=== PATIENT | male | born 1990 | race Caucasian/White ===

== ENCOUNTER 2016-08-24 10:36 | Observation (INO) | payer OTHER ==
--- NOTE | 2016-08-24 10:44 | EDPHY ---
H & P Time Seen by Provider: 08/24/16 10:41 HPI/ROS: CHIEF COMPLAINT: Left ankle deformity HISTORY OF PRESENT ILLNESS: The patient is brought into the ED by paramedics is limited trauma activation. The patient had isolated injury and deformity to his left ankle after a fall while climbing/hiking. The patient apparently struck a tree ultimately landed on his left ankle. He did not strike his head or lose consciousness. In the ED, the patient has no complaints of headache, neck pain, chest pain, back pain, abdominal pain, numbness, weakness or additional complaints aside from moderate to severe pain in his left ankle. REVIEW OF SYSTEMS: A comprehensive 10 point review of systems is otherwise negative aside from elements mentioned in the history of present illness. Source: Patient Exam Limitations: No limitations - Medical/Surgical History PMH: Past medical history: Noncontributory - Family History Significant Family History: No pertinent family hx - Social History Smoking Status: Never smoked - Physical Exam Exam: General Appearance: Alert, mild discomfort secondary to pain Head: Atraumatic Eyes: Pupils equal, round, reactive ENT, Mouth: No hemotympanum, no oral trauma Neck: Nontender, trachea midline Respiratory: No chest wall tender, subcutaneous air, lungs clear bilaterally Cardiovascular: Regular rate and rhythm Abdomen: Abdomen is soft and nontender, pelvis stable Skin: Multiple superficial abrasions Back: No midline T/L/S pain Extremities: Obvious ankle dislocation noted in the left ankle, slightly diminished posterior tibial pulse noted on exam Neurological: GCS 15, 5/5 strength all 4 extremities, sensation intact to light touch throughout the right and left lower extremities Constitutional: Initial Vital Signs Temperature (C) 36.6 C 08/24/16 10:40 Heart Rate 94 08/24/16 10:40 Respiratory Rate 10 L 08/24/16 10:40 Blood Pressure 138/70 H 08/24/16 10:40 O2 Sat (%) 96 08/24/16 10:40 O2 Delivery Mode Room Air Allergies/Adverse Reactions: No Known Allergies Allergy (Unverified 08/24/16 11:20) Home Medications: Medication Instructions Recorded NK [No Known Home Meds] 08/24/16 Medical Decision Making - Diagnostics Imaging Results: Imaging Impressions Ankle X-Ray 08/24/16 10:41 Impression: Bimalleolar fracture with mild widening of the ankle mortise medially suggesting disruption. Ankle X-Ray 08/24/16 11:14 Impression: Improved alignment following reduction of displaced medial and lateral malleolar fractures. Procedures: Procedure: Dislocation reduction. Indication: Dislocation of left bimalleolar ankle fracture dislocation The left ankle dislocation was reduced in the usual fashion without complications. The patient received IV fentanyl and Dilaudid prior to reduction. Post reduction the patient's neurovascular exam is normal. Post reduction x-ray demonstrates reduction of the joint to the anatomic position. The procedure was performed by myself. ED Course/Re-evaluation: The patient had an IV established. The patient received IV fentanyl prior to arrival by paramedics. He presents to the ED with an obvious ankle dislocation. The patient received an additional IV dose of Dilaudid. I reduced his ankle without difficulty. Post reduction x-ray demonstrates alignment of the complicated bimalleolar fracture. Consultation was made with Dr. Colin Diamond from Orthopedic surgery who evaluated the patient in the emergency department at 11:45 a.m. The patient will be admitted to the hospital for repair of his bimalleolar fracture. Dr. Antonio Florence from trauma surgery will admit the patient to the hospital secondary to his limited trauma activation status. Differential Diagnosis: Differential diagnosis considered includes open ankle fracture dislocation, closed ankle fracture dislocation, neurovascular injury, compartment syndrome - Data Points Medications Given: Discontinued Medications Hydromorphone HCl (Dilaudid) 1 mg IVP EDNOW ONE Stop: 08/24/16 10:54 Last Admin: 08/24/16 11:21 Dose: 1 mg Ondansetron HCl (Zofran) 4 mg IVP EDNOW ONE Stop: 08/24/16 10:55 Last Admin: 08/24/16 11:21 Dose: 4 mg Tetracaine/Epinephrine/Lidocaine (Let Gel Topical) 1 ea TP EDNOW ONE Stop: 08/24/16 11:39 Last Admin: 08/24/16 11:38 Dose: 1 ea Departure - Departure Disposition: [facility] Inpatient Acute Clinical Impression: Multiple abrasions Bimalleolar ankle fracture Qualifiers: Encounter type: initial encounter Fracture type: closed Laterality: left Qualified Code(s): S82.842A - Displaced bimalleolar fracture of left lower leg, initial encounter for closed fracture Condition: Good Referrals: Patient,NotPresent [Unknown] - As per Instructions
[2016-08-24] MEDS ORDERED: LET GEL TOPICAL 1 EA SYR TP ONE ×2 (10:45→11:38)
[2016-08-24] MEDS ORDERED: HYDROmorphONE/DILAUDID 1 MG/ML SYR ONE (10:47)
[2016-08-24] MEDS ORDERED: ONDANSETRON 4 MG/2 ML VIAL ONE ×2 (10:48→12:18)
[2016-08-24] MEDS ORDERED: HYDROmorphONE/DILAUDID 1 MG/ML SYR IVP ONE (10:53)
[2016-08-24] MEDS ORDERED: ONDANSETRON 4 MG/2 ML VIAL IVP ONE (10:54)
[2016-08-24] MEDS ORDERED: POLYMYXIN B SULFATE 500,000 UNIT/10 ML SYR IRR ONE (12:14)
[2016-08-24] MEDS ORDERED: BACITRACIN 50,000 UNITS/10 ML SYR IRR ONE (12:14)
[2016-08-24] MEDS ORDERED: BUPIVACAINE 0.25% 30 ML SDV ONE (12:14)
[2016-08-24] MEDS ORDERED: PROPOFOL 200 MG/20 ML VIAL ONE (12:18)
[2016-08-24] MEDS ORDERED: DEXAMETHASONE 4 MG/ML VIAL ONE (12:18)
[2016-08-24] MEDS ORDERED: HYDROmorphONE/DILAUDID 2 MG/ML INJ ONE ×2 (12:18→14:45)
[2016-08-24] MEDS ORDERED: LIDOCAINE 2% 100 MG/5 ML SYR ONE (12:18)
[2016-08-24] MEDS ORDERED: MIDAZOLAM 2 MG/2 ML VIAL ONE (12:33)
[2016-08-24] MEDS ORDERED: CEFAZOLIN 2 GM/DEXTROSE/100 ML BAG IV ONE (12:38)
[2016-08-24] MEDS ORDERED: BUPIVACAINE/EPI 0.25% 30 ML SDV ONE (13:11)
--- NOTE | 2016-08-24 13:16 | GHP ---
[f rep st] HISTORY AND PHYSICAL DATE OF ADMISSION: 08/24/2016 CHIEF COMPLAINT: Fall from a climbing. PRESENT ILLNESS: A 26-year-old male fell approximately 25 feet while rock climbing, landing on the left ankle. Brought to the hospital. The patient is alert and oriented, complaining only of left a nkle pain. He has a splint in place. ALLERGIES: None. CURRENT MEDICATIONS: None. PREVIOUS SURGERY: Inguinal hernia as a child. SOCIAL HISTORY: Works for [employer]. Smokes occasional vape; no tobacco. Ethanol use: Occasiona lly. REVIEW OF SYSTEMS: Denies asthma, heart trouble, diabetes, epilepsy, rheumatic fever. PHYSICAL EXAM: HEENT: PERRLA, EOMI. Sclerae are nonicteric. Pharynx is clear. NECK: Supple wit hout adenopathy. LUNGS: Clear. No supraclavicular nor axillary crepitus. NECK: Clavicles intact . UPPER EXTREMITIES: Atraumatic. LUNGS: Clear. HEART: Normal S1, S2 without murmurs. CHEST: Sternum is stable. Chest wall stable to compression. ABDOMEN: Soft, benign. PELVIS: Stable to c ompression. BACK: Nontender. LOWER EXTREMITIES: Thighs unremarkable. Right lower extremity unrem arkable. Left has a posterior splint in place. Toes are pink and with full motion. IMAGING: X-rays were reviewed showing a bimalleolar fracture with comminution. PLAN: The patient is being attended to by Dr. Declan Diamond from Orthopedics who plans on ORIF left ankl e in the next hour. Otherwise, the patient seems to have a single-system, isolated ankle fracture. /[id number]/MODL
[2016-08-24] MEDS ORDERED: KETOROLAC 30 MG/1 ML SDV ONE (14:27)
[2016-08-24] MEDS ORDERED: fentaNYL 100 MCG/2 ML INJ ONE (14:45)
[2016-08-24] MEDS ORDERED: ONDANSETRON DISINTEGRATING 4 MG TAB PO PRN (14:48)
[2016-08-24] MEDS ORDERED: ONDANSETRON 4 MG/2 ML VIAL IVP PRN (14:48)
[2016-08-24] MEDS ORDERED: oxyCODONE IR 5 MG TAB PO PRN (14:50)
[2016-08-24] MEDS ORDERED: HYDROmorphONE/DILAUDID 1 MG/ML SYR IVP PRN (14:52)
[2016-08-24] MEDS ORDERED: HYDROmorphONE/DILAUDID 2 MG TAB PO PRN (14:52)
[2016-08-24] MEDS ORDERED: PROMETHAZINE HCL 25 MG/ML INJ IVP PRN (14:55)
[2016-08-24] MEDS ORDERED: TEMAZEPAM 15 MG CAP PO PRN (14:55)
[2016-08-24] MEDS ORDERED: METOCLOPRAMIDE 10 MG/2 ML VIAL IVP PRN (14:55)
[2016-08-24] MEDS ORDERED: diphenhydrAMINE 25 MG CAP PO PRN (14:55)
[2016-08-24] MEDS ORDERED: DIPHENOXYLATE/ATROPINE LOMOTIL 1 TAB PO PRN (14:55)
[2016-08-24] MEDS ORDERED: CYCLOBENZAPRINE 10 MG TAB PO PRN (14:55)
[2016-08-24] MEDS ORDERED: LR 1,000 ML IV SCH (15:00)
--- NOTE | 2016-08-24 15:16 | POSTOPPROG ---
Post Op Note Date of Operation: 08/24/16 Surgeon: Colin Diamond Leaf Binner: Gissel Beaver Anesthesiologist: Rylee Anesthesia: LMA Pre-op Diagnosis: Left bi-maleolar ankle fracture Post-op Diagnosis: Same Procedure: ORIF bi-maleolar anlkle fracture Findings: Synthes locking plate lateral and 2 screws medial Inf/Abcess present in the surg proc area at time of surgery?: No EBL: Minimal Complications: None
--- NOTE | 2016-08-24 15:33 | GOP ---
[f rep st] OPERATIVE REPORT DATE OF OPERATION: 08/24/2016 SURGEON: Colin Diamond MD DISPLAY SPECIALIST: Gissel Beaver PA-C. A reference assistant was medically necessary and required to compl ete this case. The starch treating assistant was used to decrease surgical time and also to assist in holding the b ones in a reduced position during the fracture fixation. PREOPERATIVE DIAGNOSIS: Left bimalleolar ankle fracture. POSTOPERATIVE DIAGNOSIS: Left bimalleolar ankle fracture. PROCEDURE PERFORMED: Open repair of bimalleolar left ankle fracture. FINDINGS: Anatomical reduction was achieved with this ankle fracture. This involved a combination of suture cerclage wire fixation of his heavily comminuted lateral distal fibula, as well as plate a nd screw osseous synthesis, using a Synthes one-third semitubular 3.5 mm locking plate. The medial malleolus was anatomically reduced and held rigidly fixed with 50 mm long tip threaded cancellous sc rews. Of note, the patient had shredded roughly 50% of the peroneal brevis tendon as it traversed t he medial malleolus. The shredded portion of the tendon was debrided, leaving him roughly 50% vega l caliber thickness at this location. DESCRIPTION OF PROCEDURE: After routinely checking the patient's identification and consent and the successful induction of LMA general anesthetic, the patient's left lower extremity was prepped and draped in the usual standard fashion. I exsanguinated the limb with an Esmarch wrap and a pneumatic tourniquet previously placed about the proximal left thigh which was inflated to 250 mmHg. A surgi rita time-out was completed. A longitudinal incision in the midaxillary line centered over the later al ankle was carried sharply through the skin and spread bluntly through the subcutaneous layer. Hi s peroneal nerve traversed quite far posteriorly and I identified this and protected this and retrac lisa this anteriorly with the soft tissue. I dissected down to the lateral malleolus. There were 8 segments of bone. Most of this was comminution of his transverse fracture site. I reassembled the fracture fragments such that it created a cylinder of the proximal and distal aspects at the main tr ansverse fracture. I used #2 FiberWire to encircle the bone and hold this in a reduced position. T wo wraps of the #2 FiberWire were utilized and this quite satisfactorily held the fibular shaft in a cylinder and I was able to reduce this and interlock the fracture fragments. I irrigated the wound prior to assembling the fracture fragments and removed all fracture hematoma. Once the fracture wa s reduced, the one-third semi-tubular plate was contoured to the lateral fibular shaft and standard AO locking screw technique was used to affix it to the shaft. I closed the periosteum and fascia over the lateral fibular plate with 2-0 Vicryl suture, the subcut aneous layer with 3-0 Vicryl, and the skin with surgical radha. On the medial side, I made a curvilinear incision on the medial aspect centered over the medial mall eolus. I carried this sharply through the skin. He had stripped most of the subcutaneous soft tiss ue and a significant portion of periosteum. The periosteum was infolded into the medial malleolus i nto the fracture point. I extracted the periosteum. Of note, the peroneus brevis tendon had profou nd tearing and shredding of roughly 50% of its thickness right at the fracture line. I did not feel this was suitable for repair and debrided the nonviable portion both proximally and distally. I in verted the ankle and flexed this, exposing the distal extent of the shredded tendon, and tapered thi s to a smooth contour. I assimilated this proximally by everting the ankle and dorsiflexing, which brought the tendon into view. I then I irrigated the fracture. I opened the fracture to the extent where I was able to see into the talus. I did not identify any damage to the talus or articular gonzalez rface of the tibial plafond. The wound was re-irrigated. I reduced the medial malleolar fragment and then placed the above-noted 2 screws which were secured excellent fixation. The FluoroScan unit was used to verify that the fr acture was anatomically reduced. Satisfied with this, this wound was irrigated once again. I reass embled the periosteum in a patchwork fashion and sutured this together. I closed the subcutaneous l moi with 4-0 Vicryl and the skin with surgical radha. A sterile bulky dressing was applied, foll owed by a plaster splint and compressive wrap. The patient tolerated the procedure well. There wer e no complications. INDICATIONS FOR SURGERY: The patient is a 26-year-old gentleman who was rock climbing earlier today when he slipped and fell and landed awkwardly and twisted his ankle. He had a significant deformit y of the ankle. He was brought in by ambulance to [facility] for limited trauma activation. He was found to have no other injuries than is fracture dislocati on of the ankle. The ankle was reduced and splinted. He is brought to the operating room for defin itive surgical management. /[id number]/MODL
[2016-08-24] MEDS ORDERED: BACITRACIN OINTMENT 1 PACKET TP PRN (21:55)
[2016-08-24] MEDS ORDERED: BACITRACIN ZINC 14.2 GM OINTTUBE TP PRN (22:09)
[2016-08-24] MEDS: FAMOTIDINE 20 MG TAB PO SCH (22:29)
[2016-08-24] MEDS: ACETAMINOPHEN 325 MG TAB PO PRN (22:30)
[2016-08-24] MEDS: ceFAZolin 2 GM/DEXTROSE 100 ML IV SCH (22:31)
[2016-08-25 04:45] LABS: HEMATOCRIT 38.4 % (40.0-51.0); HEMOGLOBIN 12.6 g/dL (13.7-17.5)
[2016-08-25] MEDS: ACETAMINOPHEN 325 MG TAB PO PRN (05:03)
[2016-08-25] MEDS: ceFAZolin 2 GM/DEXTROSE 100 ML IV SCH (05:04)
[2016-08-25] MEDS: FAMOTIDINE 20 MG TAB PO SCH (11:20)
[2016-08-25 11:27] VITALS: PULSE 93; RESP 14; TEMP 98; O2SAT 99
[2016-08-25 13:24] VITALS: BP 126/76
== END 2016-08-25 14:00 | disposition home or self-care (01) ==
LOC: F3N 15:27
PROVIDERS: ADMIT Surgery; ATTEND Surgery
PROC: 0SSG04Z Reposition Left Ankle Joint with Internal Fixation Device, Open Approach (ICD-10-PCS; principal; 2016-08-24 12:52)
DX: S82.842A Displaced bimalleolar fracture of left lower leg, initial encounter for closed fracture (principal); W19.XXXA Unspecified fall, initial encounter; Y93.01 Activity, walking, marching and hiking; Y92.828 Other wilderness area as the place of occurrence of the external cause
CPT/HCPCS: 27814; 73610; 92523; 96374; 96375; 97116; 97161; 97165; 97530; 99285; G0378; C1713; J0690; J1100; J1170; J1885; J2001; J2250; J2405; J2704; J3010; L4350